=== PATIENT | female | born 1955 | race Caucasian/White ===

== ENCOUNTER 2016-05-12 07:41 | Emergency (ER) | payer BC ==
[2016-05-12 08:26] VITALS: BP 122/66
--- NOTE | 2016-05-12 09:19 | UC ---
Throat Pain/Nasal Aron HPI - HPI Summary HPI Summary: URI for a week, sinuses feel worse today, pressure, yellow drainage, headache, malaise. No fever or vomiting. - History of Current Complaint Chief Complaint: UCRespiratory Stated Complaint: SINUSES Time Seen by Provider: 05/12/16 09:05 Hx Obtained From: Patient Hx Last Menstrual Period: 1992 Onset/Duration: Gradual Onset Severity: Moderate Cough: Nonproductive Associated Signs & Symptoms: Positive: Hoarseness, Sinus Discomfort, Nasal Discharge - Epiglottits Risk Factors Epiglottis Risk Factors: Negative - Allergies/Home Medications Allergies/Adverse Reactions: Allergies Allergy/AdvReac Type Severity Reaction Status Date / Time Cefaclor [From Ceclor] AdvReac Intermediate Diarrhea Verified 05/12/16 08:22 Home Medications: Home Medications Atorvastatin* [Lipitor*] 10 mg PO DAILY 05/12/16 [History Confirmed 05/12/16] PMH/Surg Hx/FS Hx/Imm Hx Endocrine History Of: Denies: Diabetes, Thyroid Disease, Hyperthyroidism, Hypothyroidism, Dyslipidemia Cardiovascular History Of: Denies: Cardiac Disorders, Hypertension, Pacemaker/ICD, Myocardial Infarction , Congestive Heart Failure, Atrial Fibrillation, Deep Vein Thrombosis, Bleeding Disorders Respiratory History Of: Denies: COPD, Asthma, Bronchitis, Pneumonia, Pulmonary Embolism GI/ History Of: Denies: Gastroesophageal Reflux, Ulcer, Gastrointestinal Bleed, Gall Bladder Disease, Kidney Stones, Diverticulitis, Renal Disease, Urosepsis Neurological History Of: Denies: TIA, CVA, Dementia, Seizures, Migraine Psychological History Of: Reports: Depression Denies: Anxiety, Bipolar Disorder, Schizophrenia, Post Traumatic Stress Disorder Cancer History Of: Denies: Lung Cancer, Colorectal Cancer, Breast Cancer, Prostate Cancer, Cervical Cancer Other History Of: Negative For: HIV, Hepatitis B, Hepatitis C, Anticoagulant Therapy - Surgical History Surgical History: Yes Surgery Procedure, Year, and Place: HYSTERECTOMY, THROAT SURGERY TO CORReCT SLEEP APNEA - Family History Known Family History: Positive: Cardiac Disease, Hypertension, Diabetes - Social History Occupation: Employed Full-time - payroll Lives: With Family Alcohol Use: Occasionally Substance Use Type: None Smoking Status (MU): Former Smoker When Did the Patient Quit Smoking/Using Tobacco: 1979 - Immunization History Most Recent Influenza Vaccination: February 2016 Most Recent Tetanus Shot: 2011 Review of Systems Constitutional: Fatigue Skin: Negative Eyes: Negative ENT: Sore Throat, Ear Ache, Nasal Discharge Respiratory: Cough Cardiovascular: Negative Gastrointestinal: Negative Genitourinary: Negative Motor: Negative Neurovascular: Negative Musculoskeletal: Negative Neurological: Negative Psychological: Negative All Other Systems Reviewed And Are Negative: Yes Physical Exam Triage Information Reviewed: Yes Appearance: Well-Appearing, No Pain Distress, Well-Nourished Vital Signs: Initial Vital Signs Temp 98.1 F 05/12/16 08:19 Pulse 78 05/12/16 08:19 Resp 16 05/12/16 08:19 BP 122/66 05/12/16 08:19 Pulse Ox 98 05/12/16 08:19 Vital Signs Reviewed: Yes Eye Exam: Normal ENT: Positive: Pharynx normal, Nasal congestion, Nasal drainage, TMs normal, Muffled/hoarse voice. Negative: Tonsillar swelling, Tonsillar exudate, Trismus Neck exam: Normal Neck: Positive: Supple Respiratory Exam: Normal Respiratory: Positive: Lungs clear, Normal breath sounds, No respiratory distress, No accessory muscle use Cardiovascular Exam: Normal Musculoskeletal Exam: Normal Neurological Exam: Normal Psychological Exam: Normal Skin Exam: Normal Throat Pain/Nasal Course/Dx - Differential Dx/Diagnosis Differential Diagnosis/HQI/PQRI: Pharyngitis, Sinusitis, URI Provider Diagnoses: URI with sinusitis Discharge - Discharge Plan Condition: Stable Disposition: HOME Prescriptions: Amoxicillin/Clavulanate TAB* [Augmentin TAB 875*] 875 mg PO BID #20 tab Guaifenesin-Codeine [Cheratussin AC] 1 - 2 teasp PO Q4HR PRN #120 ml MDD 30ml PRN Reason: Cough Patient Education Materials: Sinusitis (ED), Upper Respiratory Infection (ED) Referrals: Kaylen Garcia MD [Primary Care Provider] -
== END 2016-05-12 09:24 | disposition home or self-care (01) ==
LOC: UCCORT 07:41
DX: J06.9 Acute upper respiratory infection, unspecified (principal); J32.9 Chronic sinusitis, unspecified; Z87.891 Personal history of nicotine dependence; Z88.1 Allergy status to other antibiotic agents
CPT/HCPCS: 99212; G0463

== ENCOUNTER 2017-03-11 11:57 | Emergency (ER) | payer BC ==
[2017-03-11 13:23] VITALS: BP 146/66
--- NOTE | 2017-03-11 13:38 | UC ---
Respiratory Complaint HPI - HPI Summary HPI Summary: Cough, congestion, sore throat for about 4 days. No fever or sinus pain. No ear pain. No chest pain. Nothing makes it better or worse. - History of Current Complaint Chief Complaint: UCGeneralIllness Stated Complaint: ST/COUGH/EAR ACHE Time Seen by Provider: 03/11/17 13:21 Hx Obtained From: Patient Hx Last Menstrual Period: 1992 ?: No Onset/Duration: Gradual Onset, Lasting Days Severity Initially: Moderate Severity Currently: Moderate Character: Cough: Nonproductive Aggravating Factors: Deep Breaths, Recumbent Position Alleviating Factors: Nothing Associated Signs And Symptoms: Positive: URI, Nasal Congestion. Negative: Dyspnea, Fever, Hemoptysis, Dizziness, Calf Pain, Calf Swelling, Edema - Risk Factors Pulmonary Embolism Risk Factors: Negative - Allergies/Home Medications Allergies/Adverse Reactions: Allergies Allergy/AdvReac Type Severity Reaction Status Date / Time Cefaclor [From Ceclor] AdvReac Intermediate Diarrhea Verified 03/11/17 13:23 PMH/Surg Hx/FS Hx/Imm Hx Previously Healthy: Yes Other History Of: Negative For: HIV, Hepatitis B, Hepatitis C, Anticoagulant Therapy - Surgical History Surgical History: Yes Surgery Procedure, Year, and Place: HYSTERECTOMY, THROAT SURGERY TO CORReCT SLEEP APNEA, L3-S1 FUSION - Family History Known Family History: Positive: Cardiac Disease, Hypertension, Diabetes - Social History Lives: With Family Alcohol Use: Occasionally Substance Use Type: None Smoking Status (MU): Former Smoker When Did the Patient Quit Smoking/Using Tobacco: 1979 - Immunization History Most Recent Influenza Vaccination: CURRENT 2016/2017 Most Recent Tetanus Shot: 2011 Review of Systems ENT: Sore Throat, Sinus Congestion Respiratory: Cough All Other Systems Reviewed And Are Negative: Yes Physical Exam Triage Information Reviewed: Yes Appearance: Well-Appearing, No Pain Distress, Well-Nourished Vital Signs: Initial Vital Signs Temp 98.0 F 03/11/17 13:15 Pulse 100 03/11/17 13:15 Resp 16 03/11/17 13:15 BP 146/66 03/11/17 13:15 Pulse Ox 100 03/11/17 13:15 Vital Signs Reviewed: Yes Eyes: Positive: Conjunctiva Clear ENT: Positive: Nasal congestion, Uvula midline. Negative: TM bulging, TM dull, TM red, Tonsillar swelling, Tonsillar exudate, Trismus, Hoarse voice, Sinus tenderness Neck: Positive: Supple, Nontender, No Lymphadenopathy Respiratory: Positive: Chest non-tender, Lungs clear, Normal breath sounds, No respiratory distress, No accessory muscle use. Negative: Respiratory distress, Decreased breath sounds, Accessory muscle use, Crackles, Rhonchi, Stridor Cardiovascular: Positive: RRR, No Murmur, Pulses Normal, Brisk Capillary Refill Abdomen Description: Positive: Nontender, No Organomegaly. Negative: Distended , Guarding Musculoskeletal Exam: Normal Musculoskeletal: Positive: Strength Intact, ROM Intact, No Edema Neurological: Positive: Alert, Muscle Tone Normal. Negative: Fatigued Skin: Negative: rashes UC Diagnostic Evaluation - Laboratory O2 Sat by Pulse Oximetry: 100 Respiratory Course/Dx - Course Course Of Treatment: uri symptoms without any worrisome features. - Differential Dx/Diagnosis Provider Diagnoses: viral uri. Discharge - Discharge Plan Condition: Good Disposition: HOME Prescriptions: Benzonatate [TESSALON 200 MG CAP] 200 mg PO TID #21 cap Patient Education Materials: Upper Respiratory Infection (ED) Referrals: Kaylen Garcia MD [Primary Care Provider] -
== END 2017-03-11 13:49 | disposition home or self-care (01) ==
LOC: UCCORT 11:57
DX: J06.9 Acute upper respiratory infection, unspecified (principal); Z88.1 Allergy status to other antibiotic agents; Z87.891 Personal history of nicotine dependence
CPT/HCPCS: 99212; G0463

== ENCOUNTER 2017-03-13 07:22 | Emergency (ER) | payer BC ==
[2017-03-13 07:34] VITALS: BP 144/83
--- NOTE | 2017-03-13 08:02 | UC ---
Respiratory Complaint HPI - HPI Summary HPI Summary: 61 yo female c/o approx one week progressively worse cough, sinus pressure, sore throat. No rash. No sob. + Nausea with heavy cough. Seen in [facility] 2 days ago -> rx mulu garcia. But feels like she is getting worse. Has used an inhaler in the past, but not recently. - History of Current Complaint Chief Complaint: UCRespiratory Stated Complaint: ST/EAR ACHE/CHEST CONGESTION Time Seen by Provider: 03/13/17 07:39 Hx Obtained From: Patient Hx Last Menstrual Period: 1992 - Allergies/Home Medications Allergies/Adverse Reactions: Allergies Allergy/AdvReac Type Severity Reaction Status Date / Time Cefaclor [From [facility]] AdvReac Intermediate Diarrhea Verified 03/13/17 07:34 PMH/Surg Hx/FS Hx/Imm Hx Previously Healthy: Yes Other History Of: Negative For: HIV, Hepatitis B, Hepatitis C, Anticoagulant Therapy - Surgical History Surgical History: Yes Surgery Procedure, Year, and Place: HYSTERECTOMY, THROAT SURGERY TO CORReCT SLEEP APNEA, L3-S1 FUSION - Family History Known Family History: Positive: Cardiac Disease, Hypertension, Diabetes - Social History Alcohol Use: Occasionally Substance Use Type: None Smoking Status (MU): Former Smoker When Did the Patient Quit Smoking/Using Tobacco: 1979 - Immunization History Most Recent Influenza Vaccination: CURRENT 2016/2017 Most Recent Tetanus Shot: 2011 Review of Systems Constitutional: Fatigue Skin: Negative Eyes: Negative ENT: Sore Throat, Ear Ache, Nasal Discharge, Sinus Congestion Respiratory: Cough Cardiovascular: Negative Gastrointestinal: Negative, Nausea Genitourinary: Negative Motor: Negative Neurovascular: Negative Musculoskeletal: Negative Neurological: Negative Psychological: Negative Is Patient Immunocompromised?: No All Other Systems Reviewed And Are Negative: Yes Physical Exam Triage Information Reviewed: Yes Appearance: Well-Nourished - sitting up, conversing easily and appropriately Vital Signs: Initial Vital Signs Temp 98 F 03/13/17 07:27 Pulse 79 03/13/17 07:27 Resp 18 03/13/17 07:27 BP 144/83 03/13/17 07:27 Pulse Ox 98 03/13/17 07:27 Vital Signs Reviewed: Yes Eye Exam: Normal ENT: Positive: Pharyngeal erythema - s/p tonsillectomy as a child, s/p sleep apnea surgery appro 5 yrs ago. Airway patent. Mild post redness, c/w cough. No jeanne sores., TM dull Respiratory Exam: Other - BS equal and clear at initial exam, but + rhonchorus cough with exp wheezes toward end of exam. No resp distress. No stridor. Cardiovascular Exam: Normal Cardiovascular: Positive: RRR, Pulses Normal, Brisk Capillary Refill Abdominal Exam: Normal Abdomen Description: Positive: Nontender Musculoskeletal Exam: Normal Neurological Exam: Normal - grossly intact Psychological Exam: Normal - conversing easily and appropriately UC Diagnostic Evaluation - Laboratory O2 Sat by Pulse Oximetry: 98 Respiratory Course/Dx - Course Course Of Treatment: Questions as posed answered to the best of my ability. - Differential Dx/Diagnosis Provider Diagnoses: acute bronchitis with bronchospasm Discharge - Discharge Plan Condition: Stable Disposition: HOME Prescriptions: Albuterol HFA INHALER* [Ventolin HFA Inhaler*] 1 - 2 puff INH Q4H PRN #1 mdi PRN Reason: Wheezing Azithromyxin RANDALL (NF) [Z-Randall (Zithromax) 250 mg tabs #6] 2 tab PO .TODAY, THEN 1 DAILY #6 tab Patient Education Materials: Acute Bronchitis (ED), Bronchospasm (ED) Referrals: Kaylen Garcia MD [Primary Care Provider] - Additional Instructions: Follow up Dr. Garcia, within four weeks for breathing and blood pressure check. Seek medical attention for worse or new problems in the meantime.
== END 2017-03-13 08:05 | disposition home or self-care (01) ==
LOC: UCCORT 07:22
DX: J20.9 Acute bronchitis, unspecified (principal); Z87.891 Personal history of nicotine dependence
CPT/HCPCS: 99212; G0463

== ENCOUNTER 2017-12-22 16:19 | Emergency (ER) | payer BC ==
[2017-12-22 16:37] VITALS: BP 128/94
--- NOTE | 2017-12-22 17:07 | UC ---
Respiratory Complaint HPI - HPI Summary HPI Summary: 5 days of productive cough, postnasal drainage, headache and overall malaise. Has a scratchy throat. No fever, nausea/vomiting. - History of Current Complaint Chief Complaint: UCRespiratory Stated Complaint: CONGESTION,COUGH Time Seen by Provider: 12/22/17 16:41 Hx Obtained From: Patient Hx Last Menstrual Period: 1992 Onset/Duration: Gradual Onset, Lasting Days, Still Present Timing: Constant Severity Initially: Moderate Severity Currently: Moderate Pain Intensity: 9 Pain Scale Used: 0-10 Numeric Character: Cough: Productive Aggravating Factors: Nothing Alleviating Factors: Nothing Associated Signs And Symptoms: Positive: URI, Nasal Congestion. Negative: Dyspnea, Fever, Wheezing - Allergies/Home Medications Allergies/Adverse Reactions: Allergies Allergy/AdvReac Type Severity Reaction Status Date / Time No Known Allergies Allergy Verified 12/22/17 16:31 Home Medications: Home Medications Diclofenac Sodium EC TAB* [Voltaren EC TAB*] 75 mg DAILY PRN 12/22/17 [History Confirmed 12/22/17] Escitalopram Oxalate [Lexapro] 1 tab DAILY 12/22/17 [History Confirmed 12/22/17] PMH/Surg Hx/FS Hx/Imm Hx - Additional Past Medical History Additional PMH: ARTHRITIS Endocrine History: Dyslipidemia Other History Of: Negative For: HIV, Hepatitis B, Hepatitis C, Anticoagulant Therapy - Surgical History Surgical History: Yes Surgery Procedure, Year, and Place: HYSTERECTOMY, THROAT SURGERY TO CORReCT SLEEP APNEA, L3-S1 FUSION - Family History Known Family History: Positive: Cardiac Disease, Hypertension, Diabetes - Social History Alcohol Use: Occasionally Substance Use Type: None Smoking Status (MU): Former Smoker When Did the Patient Quit Smoking/Using Tobacco: 1979 - Immunization History Most Recent Influenza Vaccination: CURRENT 2016/2017 Most Recent Tetanus Shot: 2011 Review of Systems Constitutional: Negative ENT: Sore Throat, Nasal Discharge Respiratory: Cough Cardiovascular: Negative Gastrointestinal: Negative Neurological: Headache All Other Systems Reviewed And Are Negative: Yes Physical Exam Triage Information Reviewed: Yes Appearance: Well-Appearing, No Pain Distress, Well-Nourished Vital Signs: Initial Vital Signs Temp 97.7 F 12/22/17 16:33 Pulse 73 12/22/17 16:33 Resp 17 12/22/17 16:33 BP 128/94 12/22/17 16:33 Pulse Ox 99 09/18/18 16:33 Vital Signs Reviewed: Yes Eyes: Positive: Conjunctiva Clear ENT: Positive: Hearing grossly normal, Pharynx normal, TMs normal Neck: Positive: Supple, Nontender, No Lymphadenopathy Respiratory Exam: Normal Cardiovascular Exam: Normal Abdomen Description: Positive: Soft Musculoskeletal: Positive: No Edema Neurological: Positive: Alert Psychological: Positive: Age Appropriate Behavior Skin: Negative: rashes UC Diagnostic Evaluation - Laboratory O2 Sat by Pulse Oximetry: 99 Respiratory Course/Dx - Differential Dx/Diagnosis Provider Diagnoses: ACUTE URI Discharge - Sign-Out/Discharge Documenting (check all that apply): Patient Departure All imaging exams completed and their final reports reviewed: No Studies - Discharge Plan Condition: Stable Disposition: HOME Prescriptions: Azithromycin 500 mg PO DAILY #5 tab Codeine Phosphate/Guaifenesin [Codeine-Guaifen 10-100 mg/5 ml] 5 - 10 ml PO Q6H PRN #150 ml MDD 40ML PRN Reason: Cough Patient Education Materials: Upper Respiratory Infection (ED) Referrals: Kaylen Garcia MD [Primary Care Provider] - If Needed Additional Instructions: YOUR SYMPTOMS MAY BE VIRALLY MEDIATED BUT GIVEN THE LENGTH OF TIME YOU HAVE BEEN ILL WE WILL COVER YOU WITH ANTIBIOTICS. IF YOU START THE MEDICINE BE SURE TO TAKE IT FOR THE FULL COURSE. REST, HYDRATE, OTC MEDS NEEDED. WILL ALSO TREAT WITH COUGH MEDICINE. SEEK FOLLOW-UP WITH YOUR PCP IF YOU ARE NOT IMPROVING OVER THE NEXT 1-2 WEEKS. - Billing Disposition and Condition Condition: STABLE Disposition: Home
== END 2017-12-22 17:19 | disposition home or self-care (01) ==
LOC: UCCORT 16:19
DX: J06.9 Acute upper respiratory infection, unspecified (principal); Z87.891 Personal history of nicotine dependence
CPT/HCPCS: 99212; G0463

== ENCOUNTER 2018-02-10 08:11 | Emergency (ER) | payer BC ==
[2018-02-10 08:32] VITALS: BP 146/81
--- NOTE | 2018-02-10 08:48 | UC ---
Bite Injury/Animal HPI - HPI Summary HPI Summary: 62-year-old woman comes in to clinic today with a chief complaint of a tick bite. [place] 2 [place]. Today in the shower she noticed a tick that was attached to her right lower leg. She pulled it out on her own. It appears that she got the head out when she pulled out. She's got a small area of her wound where the tick was. There is no rash no streaking no fevers patient feels well. - History of Current Complaint Chief Complaint: UCSkin Stated Complaint: TICK BITE Time Seen by Provider: 02/10/18 08:25 Hx Last Menstrual Period: 1992 Pain Intensity: 0 - Allergies/Home Medications Allergies/Adverse Reactions: Allergies Allergy/AdvReac Type Severity Reaction Status Date / Time No Known Allergies Allergy Verified 02/10/18 08:25 Home Medications: Home Medications Cholecalciferol TAB* [Vitamin D TAB*] 1 tab PO DAILY 02/10/18 [History Confirmed 02/10/18] Cyanocobalamin TAB* [Vitamin B12 TAB*] 1 tab PO DAILY 02/10/18 [History Confirmed 02/10/18] PMH/Surg Hx/FS Hx/Imm Hx - Additional Past Medical History Additional PMH: Arthritis Other History Of: Negative For: HIV, Hepatitis B, Hepatitis C, Anticoagulant Therapy - Surgical History Surgical History: Yes Surgery Procedure, Year, and Place: HYSTERECTOMY, THROAT SURGERY TO CORReCT SLEEP APNEA, L4-S1 FUSION - Family History Known Family History: Positive: Cardiac Disease, Hypertension, Diabetes - Social History Alcohol Use: Occasionally Substance Use Type: None Smoking Status (MU): Former Smoker When Did the Patient Quit Smoking/Using Tobacco: 1979 - Immunization History Most Recent Influenza Vaccination: CURRENT 2016/2017 Most Recent Tetanus Shot: 2011 Review of Systems Constitutional: Negative Skin: Other - See HPI Eyes: Negative ENT: Negative Respiratory: Negative Cardiovascular: Negative Gastrointestinal: Negative Motor: Negative Neurovascular: Negative Musculoskeletal: Negative Neurological: Negative Psychological: Negative Is Patient Immunocompromised?: No All Other Systems Reviewed And Are Negative: Yes Physical Exam Triage Information Reviewed: Yes Appearance: Well-Appearing, No Pain Distress, Well-Nourished Vital Signs: Initial Vital Signs Temp 97.7 F 02/10/18 08:25 Pulse 76 02/10/18 08:25 Resp 16 02/10/18 08:25 BP 146/81 02/10/18 08:25 Pulse Ox 97 02/10/18 08:25 Vital Signs Reviewed: Yes Eye Exam: Normal Eyes: Positive: Conjunctiva Clear Neck exam: Normal Neck: Positive: Supple Respiratory: Positive: No respiratory distress Musculoskeletal Exam: Normal Musculoskeletal: Positive: Strength Intact, ROM Intact Neurological Exam: Normal Neurological: Positive: Alert, Muscle Tone Normal Psychological Exam: Normal Psychological: Positive: Age Appropriate Behavior Skin: Positive: Other - Right lower lateral calf has a 5 mm area with a scab over it where the tick was removed. There is no rashes no streaking there is no drainage. Bite Injury Course/Dx - Differential Dx/Diagnosis Provider Diagnoses: TICK BITE Discharge - Sign-Out/Discharge Documenting (check all that apply): Patient Departure All imaging exams completed and their final reports reviewed: No Studies - Discharge Plan Condition: Stable Disposition: HOME Prescriptions: DOXYcycline CAP(*) [DOXYcycline 100MG CAP(*)] 200 mg PO DAILY #2 cap Patient Education Materials: Tick Bite (ED) Referrals: Kaylen Garcia MD [Primary Care Provider] - Additional Instructions: FOLLOW UP WITH YOUR DOCTOR IF NOT COMPLETELY IMPROVED. GET RECHECKED FOR ANY WORSENING OF YOUR CONDITION OR QUESTIONS OR CONCERNS. - Billing Disposition and Condition Condition: STABLE Disposition: Home
== END 2018-02-10 08:54 | disposition home or self-care (01) ==
LOC: UCCORT 08:11
DX: S30.861A Insect bite (nonvenomous) of abdominal wall, initial encounter (principal); M19.90 Unspecified osteoarthritis, unspecified site; W57.XXXA Bitten or stung by nonvenomous insect and other nonvenomous arthropods, initial encounter; Y92.9 Unspecified place or not applicable; Z87.891 Personal history of nicotine dependence
CPT/HCPCS: 99212; G0463

== ENCOUNTER 2018-07-08 10:08 | Emergency (ER) | payer BC ==
[2018-07-08 10:47] VITALS: BP 144/75
--- NOTE | 2018-07-08 10:52 | UC ---
Throat Pain/Nasal Aron HPI - HPI Summary HPI Summary: Headaches, bilateral ear "tender", "green" head congestion, intermittent sore throat, "yellow green" nasal congestion, and intermittent chills for one week. No measured fever. Patient has been using Benadryl, Mucus Relief , and Tylenol without improvement. - History of Current Complaint Chief Complaint: UCRespiratory Stated Complaint: SINUS,CHEST CONGESTION Time Seen by Provider: 07/08/18 10:50 Hx Obtained From: Patient Hx Last Menstrual Period: 1992 ?: No Onset/Duration: Sudden Onset, Lasting Days Severity: Moderate Pain Intensity: 8 Associated Signs & Symptoms: Positive: Dysphagia, Hoarseness, Sinus Discomfort, Nasal Discharge - Allergies/Home Medications Allergies/Adverse Reactions: Allergies Allergy/AdvReac Type Severity Reaction Status Date / Time No Known Allergies Allergy Verified 07/08/18 10:41 PMH/Surg Hx/FS Hx/Imm Hx Previously Healthy: Yes Other History Of: Negative For: HIV, Hepatitis B, Hepatitis C, Anticoagulant Therapy - Surgical History Surgical History: Yes Surgery Procedure, Year, and Place: HYSTERECTOMY, THROAT SURGERY TO CORReCT SLEEP APNEA, L4-S1 FUSION - Family History Known Family History: Positive: Cardiac Disease, Hypertension, Diabetes - Social History Alcohol Use: Occasionally Substance Use Type: None Smoking Status (MU): Former Smoker When Did the Patient Quit Smoking/Using Tobacco: 1979 - Immunization History Most Recent Influenza Vaccination: CURRENT 2016/2017 Most Recent Tetanus Shot: 2011 Review of Systems All Other Systems Reviewed And Are Negative: Yes Constitutional: Positive: Chills, Fatigue Skin: Positive: Negative Eyes: Positive: Negative ENT: Positive: Ear Ache, Nasal Discharge, Sinus Congestion Respiratory: Positive: Cough Cardiovascular: Positive: Negative Gastrointestinal: Positive: Negative Genitourinary: Positive: Negative Motor: Positive: Negative Neurovascular: Positive: Negative Musculoskeletal: Positive: Negative Neurological: Positive: Headache Psychological: Positive: Negative Is Patient Immunocompromised?: No Physical Exam Triage Information Reviewed: Yes Appearance: Well-Nourished, Ill-Appearing, Pain Distress Vital Signs: Initial Vital Signs Temp 98 F 07/08/18 10:38 Pulse 74 07/08/18 10:38 Resp 18 07/08/18 10:38 BP 144/75 07/08/18 10:38 Pulse Ox 100 07/08/18 10:38 Vital Signs Reviewed: Yes Eye Exam: Normal ENT: Positive: Pharyngeal erythema, Nasal congestion, Nasal drainage, TM bulging , Sinus tenderness Dental Exam: Normal Neck exam: Normal Neck: Positive: Supple, Nontender, No Lymphadenopathy Respiratory Exam: Normal Respiratory: Positive: Chest non-tender, Lungs clear, Normal breath sounds Cardiovascular Exam: Normal Cardiovascular: Positive: RRR, No Murmur, Pulses Normal Abdominal Exam: Normal Musculoskeletal Exam: Normal Neurological Exam: Normal Psychological Exam: Normal Skin Exam: Normal Throat Pain/Nasal Course/Dx - Course Course Of Treatment: hx obtained, exam performed ,meds reviewed, treated for rhinosinusitis - Differential Dx/Diagnosis Differential Diagnosis/HQI/PQRI: Influenza, Laryngitis, Otitis Media, Pharyngitis, Sinusitis, URI Provider Diagnosis: Acute rhinosinusitis Discharge - Sign-Out/Discharge Documenting (check all that apply): Patient Departure All imaging exams completed and their final reports reviewed: No Studies - Discharge Plan Condition: Stable Disposition: HOME Prescriptions: Azithromyxin JEREMY (NF) [Z-Jeremy (Zithromax) 250 mg tabs #6] 2 tab PO .TODAY, THEN 1 DAILY #6 tab Patient Education Materials: Rhinosinusitis (ED) Referrals: Kaylen Garcia MD [Primary Care Provider] - Additional Instructions: 1. take the medication as prescribed. 2. Increase fluid intake 3. gargle with salt water use neti pot 4. Follow up as needed. - Billing Disposition and Condition Condition: STABLE Disposition: Home
== END 2018-07-08 11:08 | disposition home or self-care (01) ==
LOC: UCCORT 10:08
DX: J01.90 Acute sinusitis, unspecified (principal); R13.10 Dysphagia, unspecified; Z87.891 Personal history of nicotine dependence
CPT/HCPCS: 99212; G0463

== ENCOUNTER 2019-05-12 07:07 | Emergency (ER) | payer BC ==
--- NOTE | 2019-05-12 07:17 | UC ---
General HPI - HPI Summary HPI Summary: Pt presents to with 2 complaints 1) pt with sinus pressure, congestion, PND x 3 days. PT has used netti pot with short term relief. no fever, chills + mild sore throat. no ear pain no cough no history of sinus surgery, no PND 2) Pt was getting out of car at parking lot stepped down and foot slipped on ice. Pt caught self with right arm on window ledge and buttock on edge of car no fall to ground. no strike head no loc no open wounds pt reports mild pain left lower flank and right forearm. no blood HEENT no midline back pain. no ext weakness or paresthesias medication entered in EMR by clinical assessment manager reviewd this visit - History of Current Complaint Stated Complaint: SINUS COMPLAINT/FELL IN PKLOT-RT ARM/LT SIDE PAIN Hx Obtained From: Patient Hx Last Menstrual Period: 1992 - Allergy/Home Medications Allergies/Adverse Reactions: Allergies Allergy/AdvReac Type Severity Reaction Status Date / Time No Known Allergies Allergy Verified 05/12/19 07:22 PMH/Surg Hx/FS Hx/Imm Hx Cardiovascular History: Hypertension Other History Of: Negative For: HIV, Hepatitis B, Hepatitis C, Anticoagulant Therapy - Surgical History Surgical History: Yes Surgery Procedure, Year, and Place: HYSTERECTOMY--1992, THROAT SURGERY TO CORReCT SLEEP APNEA, L4-S1 FUSION. B/L NERVE BLOCKS--S1 THROUGHT COCXXYX - Family History Known Family History: Positive: Cardiac Disease, Hypertension, Diabetes - Social History Lives: With Family Alcohol Use: Occasionally Substance Use Type: None Smoking Status (MU): Former Smoker When Did the Patient Quit Smoking/Using Tobacco: 1979 - Immunization History Most Recent Influenza Vaccination: CURRENT 2016/2017 Most Recent Tetanus Shot: 2011 Review of Systems All Other Systems Reviewed And Are Negative: Yes Constitutional: Positive: Negative ENT: Positive: Nasal Discharge, Sinus Congestion, Sinus Pain/Tenderness Respiratory: Positive: Negative Cardiovascular: Positive: Negative Gastrointestinal: Positive: Negative Physical Exam - Summary Physical Exam Summary: Vital Signs Reviewed: Yes A+Ox3, no distress Eyes: Conjunctiva Clear, JOSE ARMANDO. EOM intact and full ENT: Hearing grossly normal TM x 2 clear no hemotypm, No septal hematoma, turbinates inflammed and boggy, + PND, + thick secretions, mmoist, uvula midline , no exudate, no erythema Neck: Positive: Supple no midline back pain c/tl/l/s Respiratory: Positive: No respiratory distress, No accessory muscle use + CTA throughout no w/r Cardiovascular: RRR nl s1, s2 no m/r CBT <2 sec abd soft + BS nt/nd no guarding, no distension Musculoskeletal Exam: MENDEZ x 4 without difficulty Strength Intact, ROM Intact no deformit, no crepitus, no limited ROM Neurological: Positive: Alert, + sensation throughout Psychological: Positive: Normal Response To transport coordinator Skin: Positive: no rash, no ecchymosis - chest, abd, back, flank Triage Information Reviewed: Yes Course/Dx - Course Course Of Treatment: Pt with sinus congestion, pressure, PND x 3 days no fever, chills improived with netti pot Will check flu swap hydrate motrin/apap flonase decongestant abx regarding fall - no deformity, no focal pain - declined imaging studies analgesia given at , ice given will check urine for hematuria as stuck left flank - no ecchymosis, pain advise pt increased pain over 48 hours motrin/apap stretch strict return precautions incident report paperwork completed by RN - Diagnoses Provider Diagnosis: Sinusitis, Fall, Contusion Discharge ED - Sign-Out/Discharge Documenting (check all that apply): Patient Departure All imaging exams completed and their final reports reviewed: No Studies - Discharge Plan Condition: Stable Disposition: HOME Prescriptions: Amoxicillin/Clavulanate TAB* [Augmentin TAB 875*] 875 mg PO BID #20 tab Patient Education Materials: Rhinosinusitis (ED), Contusion in Adults (ED) Referrals: Kaylen Garcia MD [Primary Care Provider] - Additional Instructions: - Stay well hydrated. Drink plenty of non-alcoholic, non-caffinated beverages. - Okay to take Tylenol every 6 hours for pain or fever. Continue to take Celebrex as previously prescribed. Take with food. Do NOT take for more than 4- 5 days. - Regarding your fall - you may have increased discomfort over the next 1-2 days - this is normal. If your pain is uncontrolled, you develop blood in your urine, shortness of breath, or any other concerns it is recommended you be rechecked - These infections are spread by secretions - do NOT share eating or drinking utensils - clean items you share with other people such as cell phones, computer mouse, TV remote, computer tablets,etc. Once you have been antibiotics for 2 days, change your toothbrush and your pillowcase. - get plenty of restful sleep - humidify the air in the room where you sleep - boil water, run a hot steam shower, vaporizer, cups of water by heat register - okay to take over the counter decongestant and cough medication - use your Netti pot - take antibiotics as prescribed. Eating yogurt with active culture may help prevent vaginal yeast infections from the antibiotics - contact your doctor or return with questions or concerns - Billing Disposition and Condition Condition: STABLE Disposition: Home
--- OUTSIDE RECORDS SUMMARY | 2019-05-12 07:17 | XMS REPORT | Continuity of Care Document ---
:1955 External Reference #:[id number] Author Name Kaylen Garcia MD Address [address] [place] [id number] Care Team Providers Name Role Phone [facility]incy Care Team Information Laryngologist [phone] Kaylen Garcia MD - Family Medicine Care Team Information Laryngologist Priyanka St MD - Rheumatology Care Team Information Laryngologist Nestor Armstrong MD - Surgery Care Team Information Laryngologist Bryce Marcelo DR - Urology Care Team Information Laryngologist [phone] Farheen Razo - Gastroenterology Care Team Information Laryngologist Problems Active Problems Provider Date Vitamin D deficiency Kaylen Garcia MD Onset: 08/05/2013 Impaired fasting glycaemia Kaylen Garcia MD Onset: 01/25/2010 Mild recurrent major depression Kaylen Garcia MD Onset: 09/16/2005 Vitamin B-complex deficiency Kaylen Garcia MD Onset: 02/08/2015 Prediabetes Kaylen Garcia MD Onset: 03/27/2016 Lymphocytic-plasmacytic colitis Kaylen Garcia MD Onset: 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 Unknown ETOH Use 03/15/2019 Currently consumes drinks every 2-3 weeks alcohol but on several occasions recently, has become intoxicated (4+ drinks) Tobacco Use Start: Unknown End: Patient is a former Unknown smoker Smoking Status Reviewed: 08/06/18 Patient is a former smoker Allergies, Adverse Reactions, Alerts Active Allergies Reaction Severity Comments Date Ibuprofen ischemic colitis 05/15/2008 Medications Active Medications SIG Qnty Indications Ordering Date Provider Folic Acid 1 by mouth every 90tabs Kaylen Garcia, 03/15/2019 1mg Tablets day MD Celecoxib 1-2 by mouth every 90caps M54.5 Kaylen Garcia, 08/05/2018 200mg day - do not use MD Capsules ibuprofen or aleve with this medication. Atorvastatin Calcium take one tablet by 90tabs E78.2 Kaylen Garcia, 03/27 mouth every day MD 20mg Tablets Vitamin B-12 1 by mouth every E53.8 Kaylen Garcia, 10/28/2013 1000mcg day MD Tablets [facility] Vitamin D3 1 by mouth every Kaylen Garcia, 10/28/2013 1000Unit day MD Capsules Escitalopram Oxalate 1 by mouth every 90tabs F33.0 Kaylen Garcia, 2006 day - note dose MD 20mg Tablets increase Immodium 1-2 by mouth three K52.832 Unknown times a day as needed for diarrhea Mesalamine Two by mouth once K52.832 SyamBiswarup 1.2gm daily Tablets DR Medications Administered in Office Medication SIG Qnty Indications Ordering Provider Date High Osmolar Contrast Material Shaw Seay M.D. 04/03/2015 200-249 MG/ML Injection Decadron 1MG Dexamethasone Shaw Seay M.D. 04/03/2015 Sodium Phosphate 1MG Injection High Osmolar Contrast Material Shaw Seay M.D. 03/15/2015 200-249 MG/ML Injection Decadron 1MG Dexamethasone Shaw Seay M.D. 03/15/2015 Sodium Phosphate 1MG Injection Immunizations CPT Code Status Date Vaccine Lot # [id number] Given 01/12/2019 Afluria Or Fluvirin Flu Vac Intramuscular Q2039 Given 01/18/2018 Flu Vaccine NOS Q2039 Given 01/09/2017 Flu Vaccine NOS 05809 Given 02/08/2015 Zoster (Zostavax) 51941 Given 10/09/2010 Tdap (Adacel) Ages 7 And Above Only 47572 Given 01/25/2010 Code For Flu Shot 52893 Given 2000 Immunization Td 7 Yrs Or Older 16272 Given 09/04/2000 Tetanus And Diptheria Toxoid 7 Years And Older Preserv Free [id number] Refused 03/15/2019 Shingrix (Shingles) Zoster Vaccine HZV, Recombinant , Subunit, Adj Vital Signs Date Vital Result Comment 03/15/2019 8:45am Weight 188.00 lb Heart Rate 80 /min BP Systolic 136 mmHg BP Diastolic 88 mmHg Respiratory Rate 18 /min Height 63 inches 5'3" BMI (Body Mass Index) 33.3 kg/m2 09/17/2018 9:16am Weight 185.00 lb Heart Rate 72 /min BP Systolic 126 mmHg BP Diastolic 70 mmHg Respiratory Rate 16 /min Height 63 inches 5'3" O2 % BldC Oximetry 98 % Ra BMI (Body Mass Index) 32.8 kg/m2 Results Test Acquired Date Facility Test Result H/L Range Note Laboratory test 03/08/2019 [facility] Vitamin D 25 32 ng/mL 30-100 1, 2 finding Hydroxy Comprehensive 03/08/2019 [facility] Sodium 141 mmol/L 135-146 3 Metabolic (CMP) Potassium 4.1 mmol/L 3.5-5.2 Chloride# 105 mmol/L 97-110 4 Carbon Dioxide 27 mmol/L 24-34 Calcium 9.2 mg/dL 8.5-10.5 5 Glucose 94 mg/dL 70-105 BUN 17 mg/dL 6-26 Creatinine 0.7 mg/dL 0.5-1.4 Total Protein 6.4 g/dL 6.0-8.0 Albumin 4.5 g/dL 3.6-4.9 Globulin 1.9 g/dL Low 2.0-3.5 A/G Ratio 2.4 Ratio High 1.0-2.2 Total Bilirubin 0.8 mg/dL 0.1-1.3 Alkaline Phosphatase 89 U/L 24-140 Alt 17 U/L 3-42 Ast 16 U/L 8-42 Anion Gap 9 mmol/L 5-15 6 Female Egfr 92 >60 7 Male Egfr 100 >60 8 Hemoglobin A1c 03/08/2019 [facility] Hemoglobin A1c 5.9 % 4.1-5.9 Estimated Average Glucose Calc 123 mg/dL 71-140 Laboratory test finding 03/08/2019 [facility] TSH 4.33 uIU/mL 0.35-4.94 CBC With Auto Diff 03/08/2019 [facility] WBC 6.7 K/uL 4.1-11.0 9 RBC 4.36 M/uL 4.00-5.40 10 Hemoglobin 14.0 gm/dL 12.0-16.0 11 Hematocrit 40.9 % 36.0-47.0 12 MCV 93.9 fL 80.0-95.0 13 MCH 32.2 pg High 27.0-32.0 14 MCHC 34.3 g/dL 32.0-36.0 15 RDW 12.8 % 10.5-14.5 16 PLT Count 234 K/ul 150-400 17 MPV 8.8 FL 7.1-10.7 Neutrophil 59.9 % 35.0-75.0 18 Lymphocyte 30.9 % 16.0-52.0 19 Monocyte 7.8 % 0.0-8.0 20 Eosinophil 0.8 % 0.0-5.0 Basophil 0.6 % 0.0-4.0 Abs Neutrophils 4.0 K/uL 1.8-7.7 21 Abs Lymphocytes 2.1 K/uL 1.2-4.8 22 Abs Monocytes 0.5 K/uL 0.0-0.8 23 Abs Eosinophils 0.1 K/uL 0.0-0.5 24 Abs Basophils 0.0 K/uL 0.0-0.2 25 Laboratory test finding 03/08/2019 [facility] Vitamin B12 1269 pg/mL High 180-914 Lipid 03/08/2019 [facility] Cholesterol 216 mg/dL High 50-199 Triglycerides 100 mg/dL 30-200 HDL 67 mg/dL 35-85 26 Chol/ HDL Ratio 3.2 ratio Low 3.7-5.6 VLDL 20 mg/dL 2-29 LDL (Calc) 129 mg/dL High 20-99 27 CBS W/Automated 11/29/2018 [facility] White Blood 8.5 K/ uL Normal 3.1-10.7 28 Diff (315)- - Count Red Blood Count 4.25 M/uL Normal 3.90-5.40 Hemoglobin 13.9 gm/dL Normal 11.6-15.8 Hematocrit 40.1 % Normal 36.0-46.1 Mean Cell Volume 94.4 fl Normal 80.9-99.0 Mean Corpuscular HGB 32.7 pg Normal 25.9-32.7 Mean Corpuscular HGB Conc 34.7 g/dL High 30.8-34.3 Platelet Count 278 K/uL Normal 155-360 Red Cell Distri Width SD 44.3 fl Normal 36-47 Red Cell Distri Width %CV 12.9 % Normal 11.7-14.4 Mean Platelet Volume 9.9 fl Normal 8.9-12.4 Neut% 49.5 % Normal 40.4-72.8 Lymph % 36.0 % Normal 20.0-42.0 [place] % 9.3 % Normal 4.3-13.2 Eo% 4.2 % Normal 0.0-6.6 Bas% 0.8 % Normal 0.0-1.1 Immature Grans 0.2 % Normal 0.0-5.0 NRBC % 0.0 /100WBC < 10/ 100 WBC Neut# 4.19 K/uL Normal 1.8-7.0 Lymph # 3.05 K/uL Normal 1.0-4.0 [place] # 0.79 K/uL Normal 0.3-0.9 Eos # 0.36 K/uL Normal 0.0-0.5 Baso # 0.07 K/uL Normal 0.0-0.1 Immature Grans Absolute 0.02 K/uL NRBC # 0.00 K/uL Ua RFX Micro & 11/29/2018 [facility] Urine Color YELLOW Yellow Culture II (315)- - Urine Clarity CLEAR Clear Urine Glucose - Dipstick NEGATIVE mg/dL Negative Urine Bilirubin - Dipstick NEGATIVE Negative Urine Ketone NEGATIVE mg/dL Negative Urine Specific Miller >= 1.030 Normal 1.010-1.030 Urine Blood NEGATIVE Negative Urine PH 5.0 Low 6.5-7.5 Urine Protein - Dipstick NEGATIVE mg/dL Negative Urine Urobilinogen - Dipstick 0.2 E.U./dL Normal 0.2-1.0 Urine Nitrite - Dipstick NEGATIVE Negative Urine Leuk Esterase NEGATIVE Negative Source: URINE, CLEAN CAT <SEE NOTE> 29 1 6 mos 2 Clinical Guidelines for recommended serum 25(OH)Vitamin D Deficient at less than 20 ng/mL Insufficient at 20 to <30 ng/mL Sufficient at 30-100 ng/mL Toxicity at greater than 100 ng/mL 3 Updated reference range on new analyzer 4 Updated reference range on new analyzer 5 Updated reference range 08-04-2018 6 Updated Reference Range 7 Concerning GFR Guidelines for Americans: Normal function or mild renal disease, if clinically at risk: >/= 60 mL/min Moderately decreased: 30-59 Severely decreased: 15-29 Renal failure: <15 There is reduced accuracy above 60ml/min/1.73 m squared, but the numeric value may be clinically useful in the near 60 range 8 Concerning GFR Guidelines: Normal function or mild renal disease, if clinically at risk: >/= 60 mL/min Moderately decreased: 30-59 Severely decreased: 15-29 Renal failure: <15 There is reduced accuracy above 60ml/min/1.73 m squared, but the numeric value may be clinically useful in the near 60 range Glomerular Filtration Rate (GFR) is estimated based on the CKD-EPI equation, which assumes a steady state for creatinine as recommended by the National Kidney Disease Education Program in conjunction with the National Institutes of Health and the National Kidney Foundation. Clinical conditions in which it may be necessary to measure GFR by using clearance methods include extremes of age and body size, severe malnutrition or obesity, diseases of skeletal muscle, paraplegia or quadriplegia, vegetarian diet, rapidly changing kidney function, and calculation of the dose of potentially toxic drugs that are excreted by the kidneys. 9 Updated Reference Range 02/2019 10 Updated Reference Range 02/2019 11 Updated Reference Range 02/2019 12 Updated Reference Range 02/2019 13 Updated Reference Range 02/2019 14 Updated Reference Range 02/2019 15 Updated Reference range 02/2019 16 Updated Reference range 02/2019 17 Updated Reference Range 02/2019 18 Updated Reference Range 02/2019 19 Updated Reference Range 02/2019 20 Updated Reference Range 02/2019 21 Updated Reference Range 02/2019 22 Updated Reference Range 02/2019 23 Updated Reference Range 02/2019 24 Updated Reference Range 02/2019 25 Updated Reference Range 02/2019 26 Per NCEP ATP III Guidelines: Results lower than 40 mg/dL are suggestive of increased risk for coronary artery disease. Results > or = to 60 mg/dL are considered a negative risk factor. 27 Per NCEP ATP III Guidelines: Normal Population <130 Patients with medical conditions: CHD/DM Optimal: <100 Borderline high: 130-159 High: 160-189 Very high: >189 28 PAIN IN GROIN POSS HERNIA 29 URINE, CLEAN CATCH Procedures Date Code Description Status 03/15/2019 79745 Brief Emotional/Behav Assessment W/ Scoring Doc Per Completed Standard Inst 08/26/2018 [id number] Colonoscopy Completed 04/08/2017 [id number] Mammogram Completed 02/05/2016 993810724 Diabetic Retinal Eye Exam Completed 03/21/2015 [id number] Mammogram Completed 01/21/2010 [id number] Bone Mineral Density Test Completed Medical Devices Description No Information Available Encounters Type Date Location Provider Dx Diagnosis Office Visit 09/17/2018 9:00a [facility] Kaylen Garcia MD E66.9 Obesity, unspecified R73.01 Impaired fasting glucose F33.0 Major depressive disorder, recurrent, mild E55.9 Vitamin D deficiency, unspecified E53.8 Deficiency of other specified B group vitamins E53.9 Vitamin B deficiency, unspecified K52.832 Lymphocytic colitis N20.9 Urinary calculus, unspecified E78.2 Mixed hyperlipidemia Z68.32 Body mass index (BMI) 32.0-32.9, adult Assessments Date Code Description Provider 03/15/2019 E66.9 Obesity, unspecified Kaylen Garcia MD 03/15/2019 E55.9 Vitamin D deficiency, unspecified Kaylen Garcia MD 03/15/2019 R73.01 Impaired fasting glucose Kaylen Garcia MD 03/15/2019 F33.0 Major depressive disorder, recurrent, mild Kaylen Garcia MD 03/15/2019 E53.9 Vitamin B deficiency, unspecified Kaylen Garcia MD 03/15/2019 E78.2 Mixed hyperlipidemia Kaylen Garcia MD 03/15/2019 E53.8 Deficiency of other specified B group Kaylen Garcia MD vitamins 03/15/2019 K52.832 Lymphocytic colitis Kaylen Garcia MD 03/15/2019 N20.9 Urinary calculus, unspecified Kaylen Garcia MD 03/15/2019 F10.14 Alcohol abuse with alcohol-induced mood Kaylen Garcia MD disorder 03/15/2019 Z68.33 Body mass index (BMI) 33.0-33.9, adult Kaylen Garcia MD 03/08/2019 E55.9 Vitamin D deficiency, unspecified Kaylen Garcia MD 03/08/2019 E55.9 Vitamin D deficiency, unspecified Schedule, Laboratory 03/08/2019 R73.01 Impaired fasting glucose Kaylen Garcia MD 03/08/2019 R73.01 Impaired fasting glucose Schedule, Laboratory 03/08/2019 F33.0 Major depressive disorder, recurrent, mild Kaylen Garcia MD 03/08/2019 F33.0 Major depressive disorder, recurrent, mild Schedule, Laboratory 03/08/2019 E53.9 Vitamin B deficiency, unspecified Kaylen Garcia MD 03/08/2019 E53.9 Vitamin B deficiency, unspecified Schedule, Laboratory 03/08/2019 E78.2 Mixed hyperlipidemia Kaylen Garcia MD 03/08/2019 E78.2 Mixed hyperlipidemia Schedule, Laboratory 03/08/2019 E55.9 Vitamin D deficiency, unspecified [facility] 03/08/2019 R73.01 Impaired fasting glucose [facility] 03/08/2019 F33.0 Major depressive disorder, recurrent, mild [facility] 03/08/2019 E53.9 Vitamin B deficiency, unspecified [facility] 03/08/2019 E78.2 Mixed hyperlipidemia [facility] 09/17/2018 E66.9 Obesity, unspecified Kaylen Garcia MD 09/17/2018 R73.01 Impaired fasting glucose Kaylen Garcia MD 09/17/2018 F33.0 Major depressive disorder, recurrent, mild Kaylen Garcia MD 09/17/2018 E55.9 Vitamin D deficiency, unspecified Kaylen Garcia MD 09/17/2018 E53.8 Deficiency of other specified B group Kaylen Garcia MD vitamins 09/17/2018 E53.9 Vitamin B deficiency, unspecified Kaylen Garcia MD 09/17/2018 K52.832 Lymphocytic colitis Kaylen Garcia MD 09/17/2018 N20.9 Urinary calculus, unspecified Kaylen Garcia MD 09/17/2018 E78.2 Mixed hyperlipidemia Kaylen Garcia MD 09/17/2018 Z68.32 Body mass index (BMI) 32.0-32.9, adult Kaylen Garcia MD Plan of Treatment Future Appointment(s):06/23/2019 9:05 am - Schedule, Laboratory at [facility]2019 9:00 am - Kaylen Garcia MD at [facility]03/15/2019 - Kaylen Garcia MDE66.9 Obesity, unspecifiedComments:Counseled about strategies for weight loss and the impact of weight on chronic medical problems.Work on healthy lifestyle, with regular exercise (20 min daily will help) and eat a healthy diet. Formal diet plans work best.E55.9 Vitamin D deficiency, unspecifiedComments:She will take her Vitamin D supplements daily. Continue supplements.R73.01 Impaired fasting glucoseNew Labs:Hemoglobin A1c, Scheduled: 06/23/19Basic (BMP), Scheduled: 06/22Comments:Impaired fasting glucose worsened slightly. HbA1c 5.8. Blood sugar normal.F33.0 Major depressive disorder, recurrent, mildNew Labs:CBC with Auto Diff-fcmg, Scheduled: 06/23/19Comments:She is currently taking 20 mg of Lexapro, symptoms are getting worsening, probably related to stressdue to impending penitentiary. Her PHQ9 score is at 9.E53.9 Vitamin B deficiency, unspecifiedNew Labs:Vitamin B12, Scheduled: 06/23/19Folate, Scheduled: Comments:She was provided with a prescription for folic acid [id number] in addition with the B12 supplements.E78.2 Mixed hyperlipidemiaComments:She is taking atorvastatin with benefit. Continue current medication. Cholesterol is slightly elevated, but still at goal.E53.8 Deficiency of other specified B group vitaminsComments:Her B12 level is higher. Recommended to cut back on B12 supplements.K52.832 Lymphocytic colitisComments:Treated by Dr. Razo. Continue to follow.N20.9 Urinary calculus, unspecifiedComments:She follows up Dr. Marcelo.F10.14 Alcohol abuse with alcohol-induced mood disorderComments:She was also informed that this could also trigger her mood. She was recommended to completely abstain from alcohol. The patient was counseled regarding alcohol addiction.Z68.33 Body mass index (BMI) 33.0-33.9, adultComments:Your goal BMI is between 18.5 and 25. Your are overweight. Work on improving your diet to help with weight loss.AllNew Medication:Folic Acid 1 mg - 1 by mouth every day Functional Status Description No Information Available Mental Status Description No Information Available Referrals Description No Information Available
[2019-05-12 07:28] VITALS: BP 138/69
[2019-05-12] MEDS ORDERED: Acetaminophen TAB* 325 MG PO ONE (07:46)
[2019-05-12 08:08] LABS: Influenza A Molecular Negative (Negative); Influenza B Molecular Negative (Negative)
== END 2019-05-12 08:35 | disposition home or self-care (01) ==
LOC: UCCORT 07:07
DX: S30.1XXA Contusion of abdominal wall, initial encounter (principal); S50.11XA Contusion of right forearm, initial encounter; J32.9 Chronic sinusitis, unspecified; I10 Essential (primary) hypertension; Z87.891 Personal history of nicotine dependence; W00.0XXA Fall on same level due to ice and snow, initial encounter; Y92.481 Parking lot as the place of occurrence of the external cause
CPT/HCPCS: 81003; 99212; A9270-GY; G0463